=== PATIENT | female | born 1940 | race Caucasian/White ===

== ENCOUNTER 2019-04-22 16:06 | Emergency (ER) | payer OTHER ==
[2019-04-22 16:35] VITALS: BP 114/60; PULSE 72; TEMP 98.1; BMI 28.5
--- NOTE | 2019-04-22 17:08 | PDOC ---
Documentation entered by Da Cage SCRIBE, acting as scribe for Raciel Perales MD. Raciel Perales MD: This documentation has been prepared by the [place] menchaca Elijah, SCRIBE, under my direction and personally reviewed by me in its entirety. I confirm that the documentation accurately reflects all work, treatment, procedures, and medical decision making performed by me. History of Present Illness - General Chief Complaint: Injury Stated Complaint: FELL Time Seen by Provider: 04/22/19 16:35 History Source: Patient Exam Limitations: No Limitations - History of Present Illness Initial Comments: 04/22/19 16:58 Patient is an 79 year old female with a significant past medical history of AFIB (on coumadin), HTN, DM and HLD who presents to the ED s/p fall occuring x2 hours ago. Patient was walking on an uneven path and caught her sandal on an uneven pavement leading her to fall. Patient hit her knees first and notes that because the fall was fast, she was unable to brace herself with her arms resulting in her hitting her nose. At this time patient reports pain in her nose. Patient denies preceding symptoms before fall including dizziness, lighteahdedness, palpiations, cp, sob, back pain, abd pain, sob. Patient denies vision changes, CAMPOS, nausea, vomiting, syncope, CP, Back pain, diarrhea, melena, bpr, dysuria, urinary frequency and palpitations. Allergies: NKA PCP: Dr. Romero Cardiologists: Dr. Brantley Past History - Past Medical History Allergies/Adverse Reactions: Allergies Allergy/AdvReac Type Severity Reaction Status Date / Time No Known Allergies Allergy Verified 04/22/19 16:20 Home Medications: Ambulatory Orders Enalapril Maleate [Vasotec] 20 mg PO DAILY 10/08/16 Folic Acid 1 mg PO DAILY 10/08/16 metFORMIN HCL [Metformin ER Osmotic] 1,000 mg PO BID 10/08/16 Hydrochlorothiazide [Hctz -] 25 mg PO DAILY 04/22/19 Metoprolol Succinate [Toprol Xl] 100 mg PO DAILY 04/22/19 Nifedipine ER [Procardia Xl -] 90 mg PO DAILY 04/22/19 Simvastatin 40 mg PO DAILY 04/22/19 Warfarin Sodium 4 mg PO DAILY 04/22/19 COPD: No Diabetes: Yes HTN: Yes Hypercholesterolemia: Yes - Suicide/Smoking/Psychosocial Hx Smoking History: Never smoked Have you smoked in the past 12 months: No Hx Alcohol Use: No Drug/Substance Use Hx: No Substance Use Type: None Review of Systems - Review of Systems Comments:: 04/22/19 16:58 Constitutional - Pt denies Fever, Chills, weakness, HEENT: +facial pain. denies vision changes, sore throat Respiratory: Denies cough, sob, hemoptysis Cardiac: denies chest pain, palpitations, light headedness, leg swelling Abd/GI: denies abd pain, nausea, vomiting, blood per rectum, melena, diarrhea : denies dysuria, frequency, discharge Musculskelatal -+R knee pain denies back pain, joint swelling skin - denies bruising, erythema, rash neurological: denies headache, numbness, focal weakness, tingling, ataxia, weakness hematologic: denies anemia, easy bruising, easy bleeding *Physical Exam - Vital Signs Last Vital Signs Temp Pulse Resp BP Pulse Ox 98.1 F 72 16 114/60 100 04/22/19 16:07 04/22/19 16:07 04/22/19 16:07 04/22/19 16:07 04/22/19 16:07 - Physical Exam Comments: 04/22/19 16:53 GENERAL: The patient is awake, alert, and fully oriented, Nontoxic - in no acute distress. HEAD: Normocephalic, atraumatic. EYES: extraocular movements intact, sclera anicteric, conjunctiva clear. PEERL ENT: +Nasal Contusion, Crepitus w/ palpation of nose. Normal voice, Moist mucous membranes. No septal hematoma NECK: Normal range of motion, supple without lymphadenopathy, JVD, or masses. no racoon eyes, no battles sign LUNGS: Breath sounds equal, clear to auscultation bilaterally. No wheezes, no crackles, no rales. HEART: slightly irregular ABDOMEN: Soft, nontender, No guarding, no rebound. EXTREMITIES: Normal range of motion, trace edema, superficial abrasion on R knee without focal bony ttp, normal ROM of b/l knees/hips/ankles NEUROLOGICAL: No facial asymmetry, Normal speech, normal gait. moving all 4 extermities spontaneously and symmetrically PSYCH: Normal mood, normal affect. SKIN: Warm, Dry, normal turgor, no rashes or lesions noted. Back: No midline tenderness to the cervical, thoracic or lumbar spine Musculoskelatal: FROM of b/l shoulders, elbows, wrist. FROM of hips, knees, ankles - No signs of ecchymosis, erythema, or crepitus noted on palpation extremities, chest wall, clavicals, ribs, back. ED Treatment Course - RADIOLOGY Radiology Studies Ordered: Category Date Time Status FACIAL BONES CT W/O CONTRAST [CT] Stat CT Scan 04/22/19 16:[address] WITHOUT CONTRAST [CT] Stat CT Scan 04/22/19 16:51 Ordered Medical Decision Making - Medical Decision Making 04/22/19 17:05 79y F hx of afib on coumadin presents sp mechanical trip and fall without syncopal prodrome with contusion to nose and abrasion to R knee. no focal bony ttp on knee and normal movement without discomfor t- will defer xray will obtain ct facial bones/head to screen for bleeding/fracture pt declines tylenol for pain 04/22/19 18:35 ct head neg for bleed ct facial bones ntoed for deformity but unclear of age inr therapeutic pt feeling well will dc with pmd fu returnprecautions were discussed I discussed the physical exam findings, ancillary test results and final diagnoses with the patient. I answered all of the patient's questions. The patient was satisfied with the care received and felt comfortable with the discharge plan and treatment plan. The patient will call their primary care physician within 24 hours to arrange follow-up and will return to the Emergency Department with any new, persistent or worsening symptoms. *DC/Admit/Observation/Transfer Diagnosis at time of Disposition: Anticoagulation adequate with anticoagulant therapy Nasal contusion Qualifiers: Encounter type: initial encounter Qualified Code(s): S00.33XA - Contusion of nose, initial encounter Head injury Qualifiers: Encounter type: initial encounter Qualified Code(s): S09.90XA - Unspecified injury of head, initial encounter - Discharge Dispostion Disposition: HOME Condition at time of disposition: Improved Decision to Admit order: No - Referrals Referrals: Flavia Romero [Primary Care Provider] - - Patient Instructions Printed Discharge Instructions: DI for Closed Head Injury Additional Instructions: Return to the emergency department immediately with ANY new, persistent or worsening symptoms including worsening headache, nausea, vomiting, blurry vision , ping or any other concerns. You MUST call and follow up with your doctor in 4-5 days for further evaluation of your symptoms. Results were discussed with you. Please make sure your doctor reviews the results of your emergency evaluation. Your Emergency Department visit is not complete without a follow up with your doctor. Print Language: FINNISH - Post Discharge Activity
[2019-04-22 17:35] LABS: INR 2.13 (0.82-1.09); PROTHROMBIN TIME (PATIENT) 23.5 SEC (10.2-13.0)
== END 2019-04-22 18:45 | disposition home or self-care (01) ==
LOC: FER 16:06
DX: S00.33XA Contusion of nose, initial encounter (principal); S09.90XA Unspecified injury of head, initial encounter; W18.39XA Other fall on same level, initial encounter; Y93.89 Activity, other specified; Y92.89 Other specified places as the place of occurrence of the external cause; I48.91 Unspecified atrial fibrillation
CPT/HCPCS: 36415; 70450-TC; 70486-TC; 85610; 99282-25